=== PATIENT | female | born 1980 | race Two or more races ===

== ENCOUNTER 2024-07-25 14:35 | Emergency (ER) | payer MEDICAID, SELFPAY ==
[2024-07-25 15:21] VITALS: BP 133/82; PULSE 88; RESP 18; TEMP 36.9; O2SAT 99; BMI 34.5
--- NOTE | 2024-07-25 15:24 | PD.EDRME ---
Rapid Medical Screening Exam RME Arrival date/time: 07/25/24 14:35 This is a 44-year-old female who presents to the emergency department with complaints of vaginal bleeding reports she is unknown gestation. I have greeted and performed a focused initial assessment of this patient. Initial appropriate labs ordered at this time. A comprehensive ED assessment and evaluation of the patient and analysis of all test and completion of medical decision making process will be conducted by additional ED provider. Chief Complaint: Vaginal Bleeding Time Seen by Provider: 07/25/24 15:04 Vital signs: Vital Signs Temperature 98.5 F 07/25/24 15:21 Pulse Rate 88 07/25/24 15:21 Respiratory Rate 18 07/25/24 15:21 Blood Pressure 133/82 H 07/25/24 15:21 Pulse Oximetry (%) 99 07/25/24 15:21 Oxygen Delivery Method Room Air 07/25/24 15:21
[2024-07-25 16:04] LABS: Collection Type, Urine Clean Catch; Squamous Epithelial Cell,Urine 0 /hpf (0-5)
[2024-07-25 16:07] LABS: Basophils % (Auto) 0 % (0-2.5); Eosinophils # (Auto) 0.1 Thou/mm3 (0.0-0.5); Eosinophils % (Auto) 1 % (0-10); Hematocrit 41.9 % (36.0-46.0); Hemoglobin 13.8 g/dL (12.0-16.0); Immature Granulocytes % (Auto) 0 % (0-0); Immature Granulocytes Auto 0.03 Thou/mm3 (0.00-0.00); Lymphocytes # (Auto) 1.4 Thou/mm3 (1.0-4.8); Lymphocytes % (Auto) 12 % (10-50); Mean Corpuscular HGB Conc 32.9 g/dl (31.0-37.0); Mean Corpuscular Hemoglobin 28.6 pg (25.0-35.0); Mean Corpuscular Volume 87 fL (80-100); Monocytes # (Auto) 0.4 Thou/mm3 (0.0-0.8); Monocytes % (Auto) 4 % (0-12); Neutrophils % (Auto) 83 % (37-80); Nucleated Red Blood Cell % 0 /100 WBC (0); Platelet Count 270 Thou/mm3 (140-440); Red Blood Count 4.82 Miln/mm3 (4.00-5.20)
--- NOTE | 2024-07-25 16:15 | XR_ITS ---
Examination: Complete OB ultrasound, less than 14 weeks, transabdominal Date and time of exam: July 25, 2024 1614 hours INDICATIONS: Pelvic pain and vaginal bleeding today Technique: Obstetrical ultrasound images less than 14 weeks performed via transabdominal imaging Findings: Uterus 11.3 x 5.6 x 6.3 cm anteverted No intrauterine gestation Endometrial stripe 13 mm Right ovary obscured by bowel gas Left ovary 5.1 x 3.1 x 5.2 cm arterial flow, 20 x 23 x 24 mm cyst IMPRESSION: No uterine mass or intrauterine gestation Left ovarian cyst 20 x 23 x 24 mm
--- NOTE | 2024-07-25 16:26 | XR_ITS ---
Examination: OB Transvaginal ultrasound of the pelvis, complete Technique: Transvaginal sonographic images pelvis performed using ramos scale imaging Exam date and time: July 25, 2024 1629 hours INDICATIONS:: Pelvic pain and vaginal bleeding today. FINDINGS: Uterus 8.7 x 5.6 x 5.1 cm No uterine mass or intrauterine gestation Endometrial stripe 1.7 cm Ovaries obscured by bowel gas IMPRESSION: Limited study No uterine mass or intrauterine gestation
[2024-07-25 16:31] LABS: Bilirubin,Urine Negative (Negative); Blood,Urine 3+ (Negative); Color,Urine Red (Lt Yel-Yel); Glucose, Urine Negative (Negative); Ketones,Urine Negative (Negative); Leukocyte Esterase,Urine Positive (Negative); Nitrite,Urine Negative (Negative); Protein,Urine 2+ (Neg - Trace); RBC,Urine 32064 /hpf (0-3); Specific Gravity,Urine 1.017 (1.001-1.035); Urobilinogen,Urine Negative mg/dL (0.0-1.0); WBC,Urine 573 /hpf (0-5)
[2024-07-25 16:36] LABS: Alanine Aminotransferase 29 U/L (10-49); Anion Gap 6 (7-16); Aspartate Amino Transferase 24 U/L (0-34); BUN/Creatinine Ratio 13 Ratio (12-20); Bilirubin,Total 0.8 mg/dL (0.3-1.2); Blood Urea Nitrogen 8 mg/dL (9-23); Calcium 10.1 mg/dL (8.3-10.6); Carbon Dioxide 26.8 mMol/L (20.0-31.0); Chloride 106 mMol/L (98-107); Creatinine (Component) 0.6 mg/dL (0.6-1.3); Estimated Creatinine Clearance 111.1 mL/min (>60); Glucose 113 mg/dL (74-106); Osmolality,Calculated 276 (275-295); Potassium 4.1 mMol/L (3.4-5.1); Sodium 139 mMol/L (136-145); Total Protein 7.7 gm/dL (5.7-8.2); eGFR > 60 See Note
[2024-07-25 16:37] LABS: Albumin/Globulin Ratio 1.9 (1.2-2.2); Alkaline Phosphatase 72 U/L (46-116); Beta HCG,Quantitative 708 mIU/mL (<5.0); Calcium (Corrected) 10.1 mg/dL (8.5-10.1); Globulin 2.7 gm/dL (2.3-3.5)
[2024-07-25 16:51] LABS: Clarity,Urine Bloody (Clear/Hazy)
[2024-07-25 17:50] VITALS: BP 136/82; PULSE 91; RESP 18; TEMP 36.7; O2SAT 97
--- NOTE | 2024-07-25 18:19 | PD.EDVAGBL ---
ED OB Contraction Preg RMI/HPI General Chief complaint: Vaginal Bleeding Stated complaint: Vaginal bleeding X 2 days, 3 mo OB Time Seen by Provider: 07/25/24 15:04 Arrival date/time: 07/25/24 14:35 RME / HPI RME / HPI Narrative: 44-year-old female patient 2 para 1, about 3 months , came in for evaluation regarding vaginal bleeding. Patient's been having bleeding for 2 days, today getting worse, changing at least 3 pads per day with blood clots. Patient denies any pelvic cramping. Denies any dizziness. Denies any other complaints. No medications taken prior travel. Related Data Home Medications ?Medication ?Instructions ?Recorded ?Confirmed famotidine 20 mg tablet 20 mg PO BID 12/04/17 12/05/17 Previous Rx's ?Medication ?Instructions ?Recorded cephalexin 500 mg capsule 500 mg PO Q8H #21 caps 05/15/23 Allergies Allergy/AdvReac Type Severity Reaction Status Date / Time No Known Allergies Allergy Verified 05/15/23 18:15 Review of Systems Review of Systems Narrative Review of Systems: Review of system reviewed and within normal limits except mentioned in HPI ED Exam Narrative Physical exam: VITAL SIGNS: Reviewed. GENERAL APPEARANCE: Alert and interactive, follows commands, no acute distress, HEAD AND FACE: Non-traumatic. ENT: PERRL, pink conjunctivitis, eyelid no trauma, Mucous membrane moist. NECK: Supple, nontender, no nuchal rigidity. CHEST: No tenderness, no crepitus, no paradoxical movement, no retractions. LUNGS: Clear, well ventilated, symmetric, no rales, no wheezing, no ronchi, no stridor, good breath sounds bilaterally. HEART: Regular rate, regular rhythm, no murmur, no gallops. ABDOMEN: Soft, positive bowel sounds, nondistended, no guarding, nontender, no rebound, no masses, RECTAL: Deferred. GENITAL: Deferred. NEUROLOGICAL: Gross motor function intact sensory function intact, Appropriate for age. MUSCULOSKELETAL: low back nontender, full range of motion. EXTREMITIES: Nontender, full range of motion. SKIN: Color pink, dry, no rash, no lacerations, no abrasions, no contusions. LYMPHATICS: Deferred. Course Quality Measures none Orders Category Date Time Status US OB <= 14 weeks fetus Stat Exams 07/25/24 16:15 Completed US OB transvaginal Stat Exams 07/25/24 16:26 Completed ABO/RH Type Stat Lab 07/25/24 15:34 Completed Beta HCG,Quantitative Stat Lab 07/25/24 15:34 Completed CBC Stat Lab 07/25/24 15:34 Completed Comprehensive Metabolic Panel Stat Lab 07/25/24 15:34 Completed Urinalysis Stat Lab 07/25/24 15:54 Completed Urine Culture Stat Lab 07/25/24 15:54 Received Vital Signs Vital signs: Vital Signs Temperature 98.5 F 07/25/24 15:21 Pulse Rate 88 07/25/24 15:21 Respiratory Rate 18 07/25/24 15:21 Blood Pressure 133/82 H 07/25/24 15:21 Pulse Oximetry (%) 99 07/25/24 15:21 Oxygen Delivery Method Room Air 07/25/24 15:21 Vaginal Bleeding MDM Narrative MDM Narrative: Patient's workup today came back with hCG of 708. No sign of anemia. Urinalysis positive for hematuria. Ultrasound showed no IUP seen. Results discussed with the patient. Patient was advised to come back in 2 days or follow-up with her SQUARING MACHINE OPERATOR in 2 days for repeat hCG. Currently she is not having any sign of anemia, vital signs are normal she is stable for discharge. Patient data External records reviewed:: None Clinical information provided by:: patient Social determinants that could affect healthcare access:: none Patient has the following chronic illnesses:: None How is presenting disease/condition affected by chronic disease/condition?: no chronic disease Evaluation data The following diagnostics were reviewed and interpreted by me:: lab results Lab and/or radiology exams considered but not ordered:: Plan Interpretation Summary: hCG today was noted to be 708, transfer via ultrasound showed no IUP and no uterine masses noted. Results discussed with the patient. CBC notes no sign of anemia. Medications / Prescriptions Medications or Prescriptions considered but not ordered:: None Medication administrations:: None Consultations Consultation(s) initiated? (list below): No Diagnosis Vaginal Bleeding Differential Diagnosis: missed , threatened , incomplete and vaginal bleeding Most likely diagnosis given after review of the tests above:: Miscarriage Admission Indicated Admission indicated?: not indicated Explain why admission is indicated or not indicated:: Stable Admission Request Was there a request for admission?: No Disposition Plan Disposition Plan: Discharge Discharge Attestation Discharge Attestation: The patient was given an opportunity to ask questions and understood the discharge instructions. Discharge instructions specifically effects, indications for sooner follow up or return to the emergency department, and the expected course of current diagnosis. Patient condition: Stable Discharge Plan Plan Patient Disposition: HOME (Self Care) Disposition Comment: stable Prescriptions/Referrals Prescriptions/Med Rec: No Action famotidine 20 mg Tablet 20 mg PO BID cephalexin 500 mg capsule 500 mg PO Q8H Qty: 21 0RF Referrals: No Primary/Family,Physician [Primary Care Provider] - In 1 week Problem List Clinical Impression: Miscarriage Patient/Caregiver Discharge Instructions Education Materials: Understanding Miscarriage ... Additional Instructions: Thank you for the opportunity for serving you today. You are stable for discharged . You are advised to: Follow-up with your SQUARING MACHINE OPERATOR in 1 to 2 days for repeat hCG or return to emergency room in 2 days Return to ED for worsening of symptoms Increase oral fluids Pelvic rest no sex for 1 week or until cleared by SQUARING MACHINE OPERATOR Print Language: Azeri Stand Alone Forms: Ketty Award Info., Patient Portal Info Letter PAOLO/AMOR Supervising Physician ALE Supervising Physician: MD Una
== END 2024-07-25 18:45 | disposition home or self-care (01) ==
PROVIDERS: Nurse Practitioner Primary Care; Emergency Provider Emergency Medicine
DX: O03.9 Complete or unspecified spontaneous abortion without complication (principal); N83.202 Unspecified ovarian cyst, left side
CPT/HCPCS: 36415; 76801; 76817; 80053; 81001; 84702; 85025; 86900; 86901; 87086; 99284

== ENCOUNTER → 2025-02-12 | Outpatient (CLI) | payer MEDICAID, SELFPAY ==
--- NOTE | 2025-02-12 09:15 | XR_ITS ---
Examination: Screening digital mammography, bilateral Computer aided detection 3-D breast Tomosynthesis, bilateral Date and time of exam: February 12, 2025 0924 hours Compared to mammograms dating to October 07, 2019 Indication: Screening Technique: Nonmagnified MLO, CC views of the breasts to been obtained, reconstructed from 3-D Tomosynthesis images. R2 computer aided detection program utilized for evaluation of suspicious masses and/or abnormal calcifications. 3-D Tomosynthesis images obtained. Findings: The breasts are heterogeneously dense, which may obscure small masses Benign calcifications. No interval suspicious masses Impression: BI-RADS category II: Benign Findings. Recommend 1 year follow-up mammogram.
== END | disposition home or self-care (01) ==
PROVIDERS: PCP Obstetrics & Gynecology; Referring Provider Obstetrics & Gynecology; Visit Provider Obstetrics & Gynecology
DX: Z12.31 Encounter for screening mammogram for malignant neoplasm of breast (principal); R92.333 Mammographic heterogeneous density, bilateral breasts; R92.1 Mammographic calcification found on diagnostic imaging of breast
CPT/HCPCS: 77063; 77067